=== PATIENT | female | born 1995 | race Caucasian/White ===

== ENCOUNTER 2019-02-22 09:55 | Emergency (ER) | payer BC, MEDICAID ==
[~2019-02-22] VITALS: Ht 160 cm; Wt 65.8 kg
--- NOTE | 2019-02-22 10:17 | NUR ---
is at bedside doing the MSE, pending orders
[2019-02-22] MEDS ORDERED: FAMOTIDINE 20 MG TABLET ONE (10:19)
[2019-02-22] MEDS ORDERED: diphenhydrAMINE 50 MG/1 ML VIAL ONE (10:19)
[2019-02-22] MEDS ORDERED: predniSONE 10 MG TABLET ONE (10:19)
[2019-02-22] MEDS ORDERED: predniSONE 50 MG TABLET ONE (10:19)
[2019-02-22] MEDS ORDERED: predniSONE 20 MG TABLET PO ONE (10:30)
[2019-02-22] MEDS ORDERED: FAMOTIDINE 20 MG TABLET PO ONE (10:30)
[2019-02-22] MEDS ORDERED: diphenhydrAMINE 50 MG/1 ML VIAL IM ONE (10:30)
--- NOTE | 2019-02-22 11:22 | NUR ---
Patient discharged to home in stable conditon & steady gait. Written and verbal after care instructions given to patient and mother. Patient and family verbalized understanding & compliance of instructions.
[2019-02-22 11:24] VITALS: BP 122/70
== END 2019-02-22 11:24 | disposition home or self-care (01) ==
LOC: ER 09:55
DX: R21 Rash and other nonspecific skin eruption (principal); T36.0X5A Adverse effect of penicillins, initial encounter; Y92.89 Other specified places as the place of occurrence of the external cause
CPT/HCPCS: 96372; 99283; J1200; J7512 ×2; A4663